=== PATIENT | male | born 1985 | race Caucasian/White ===

== ENCOUNTER 2016-07-09 20:12 | Emergency (ER) | payer SELFPAY ==
[~2016-07-09] VITALS: Ht 165.1 cm; Wt 62.5 kg
[~2016-07-09 20:12] MED LIST: ALBU18HF2 IH; AMOX875T2 PO; ERYT1OIN6 BOTH EYES
--- OUTSIDE RECORDS SUMMARY | 2016-07-09 20:15 | XMS REPORT | Continuity of Care Document ---
Author Author [facility] Organization [facility] Address Unknown Phone Unavailable Support Name Relationship Address Phone MARIANNA COLEMAN DO Caregiver [address] [place] [address] Unavailable DEANGELO HU Next Of Kin [address], [place] [id number] Insurance Providers Guarantor aDyo Tomlinson Address [address] [place] [address] Email DENIED 16 Payer Self Pay Subscriber's Name ErickDayo Relationship 18 Self Chief Complaint and Reason for Visit Chief Complaint Eye Problems Reason for Visit Conjunctivitis Problems Past Problems Medical Problem Onset Date Asthma exacerbation Unknown Conjunctivitis Unknown Mild asthma exacerbation Unknown Medications Current Home Medications Medication Dose Units Route Directions Days Qty Instructions Start Date Albuterol Sulfate (Ventolin Hfa 90 Mcg/Actuation) 18 Gm Hfa.aer.ad 2-4 Puff Inhalation Every 4 Hours for Shortness Of Air/Wheezing 1 Inhaler Amoxicillin 875 Mg Tablet 1 Tab Oral Every 12 Hours 10 Days 20 Tablet 07/03/16 Erythromycin (Ilotycin) 1 Gm Oint...g. 1 Applic Both Eyes 6 Times A Day Special 10 Days 3.5 Gram APPLY RIBBON OF OINTMENT TO LOWER LID OF AFFECTED EYE(S). 07/03/16 Social History Social History Problem Response Recorded Date/Time Onset Date Status Hx Substance Use No 07/03/2016 8:12am Not Applicable Not Applicable Hx Alcohol Use No 07/03/2016 8:12am Not Applicable Not Applicable Query Response Start Date Stop Date Smoking Status Former smoker Hospital Discharge Instructions No hospital discharge instructions. Plan of Care Discharge Date 07/03/16 8:36am Disposition 01 DISCHARGED HOME, SELF-CARE Condition at Discharge Improved Instructions/Education Provided Conjunctivitis (ED) Prescriptions See Medication Section Referrals DAYO VASQUEZ MD Order Date: 2 Days Address: [address] [place] [address] [address] [place] [phone] [facility] Order Date: 2 Days Care Plan and Goals Physician Care Plan Problem: Acute Conjunctivitis Goal: Follow up with primary care provider Instructions: Take medications and follow care plan as discussed/written Functional Status No functional status results. Allergies, Adverse Reactions, Alerts No known allergies. Immunizations Query Response on File Recorded Date/Time Tdap Vaccine Hx UNKNOWN 07/03/16 8:05am Vital Signs Acute Vital Signs Vital Response Date/Time Temperature (Fahrenheit) 98.3 deg F (96.8 - 99.1) 07/03/2016 8:36am Temperature (Calculated Celsius) 36.90597 degrees C (36.0 - 37.3) 07/03/2016 8:36am Pulse Rate (adult) 79 bpm (60 - 100) 07/03/2016 8:36am Respiratory Rate 16 breaths/min (10 - 20) 07/03/2016 8:36am O2 Sat by Pulse Oximetry 98 % (90 - 100) 07/03/2016 8:36am Blood Pressure 127/81 mm Hg 07/03/2016 8:36am Height (Feet) 5 feet 07/03/2016 8:05am Height (Inches) 5.00 inches 07/03/2016 8:05am Weight (Kilograms) 67.800 kg 07/03/2016 8:05am Body Mass Index (BMI) 24.0 07/03/2016 8:05am Results No known relevant diagnostic tests, laboratory data and/or discharge summary. Procedures No known history of procedures. Encounters Encounter Location Arrival/Admit Date Discharge/Depart Date Attending Provider Departed Emergency Room [facility] 07/03/16 7:55am 07/03/16 8: 36am MARIANNA COLEMAN DO Recent Diagnosis
[2016-07-09 21:24] VITALS: Ht 165.1 cm; Wt 62.5 kg
[2016-07-09] MEDS ORDERED: NORMAL SALINE 1,000 ML IV ONE (21:30)
[2016-07-09] MEDS ORDERED: ONDANSETRON 4mg/2ml INJECTION IV ONE (21:30)
--- NOTE | 2016-07-09 21:33 | ERPDOC ---
Departure Disposition Decision Date: Jul 09, 2016 Disposition Decision Time: 22:28 Disposition: 01 DISCHARGED HOME, SELF-CARE Impression Impression Impression: Primary Impression: Viral gastroenteritis Additional Impressions: Dehydration Vomiting Vomiting type: unspecified Vomiting Intractability: intractable Nausea presence: with nausea Qualified Codes: R11.2 - Nausea with vomiting, unspecified Severity: Severe Condition: Improved Seen By: Physician only Problems/Meds/Labs Reviewed?: Yes Medications reviewed and manag: Yes Follow up care ordered?: Yes Mental Status: Alert Scripts Ondansetron (Zofran Odt) 4 Mg Tab.rapdis 4 MG PO Q6HR, #10 TAB Oral disintegrating tablet Prov: TERRI GREEN MD 07/09/16 HPI - Abdominal Pain General Chief Complaint: Nausea,Vomiting,Diarrhea Stated Complaint: VOMITING,DIARRHEA Time Seen by Provider: 21:26 Source: patient History/Exam Limitations: no limitations HPI - Abdominal Pain Initial Comments Vomiting for the past 24 hours. Patient has been unable to hold fluids down for the past 12 hours. Times began yesterday around this time with vomiting and diarrhea, patient did have cramping pain just before vomiting or diarrhea. Diarrhea has now resolved, patient is still unable to take even fluids. No urine output since 8 AM, patient has been unable to drink, and continues to have dry heaves. Occurred At: home Onset: Rapid Duration: 12-24 hrs Quality: cramping Location: generalized abdomen Associated Symptoms: nausea/vomiting, DENIES: chest pain, diaphoresis, fatigue , fever/chills, headache, heartburn, rash, shortness of breath, swelling/mass in abdomen, syncope, weakness Hx of Similar Symptoms: No Allergies: Coded Allergies: No Known Allergies (Unverified , 07/09/16) Past History Past Medical History Respiratory: asthma Surgical History Denies Surgeries Social History Does patient use chewing tobac: No Second Hand Exposure: No Substance Use Type: does not use Alcohol Intake: none Current Occupational Status: employed Record Review Pertinent history updated: Yes Review of Systems Constitutional Constitutional: DENIES: appetite decrease, appetite increase, chills, dizziness , fever, weakness ENMT Ears: DENIES: pain Hearing: DENIES: hearing loss, tinnitus Balance: DENIES: vertigo Mouth/Throat: DENIES: change in swallowing, change in voice, hoarsness, painful swallowing, sore throat Cardiovascular Cardiac: DENIES: chest pain, dyspnea on exertion Rhythm/Rate: DENIES: irregular beat, palpitations, tachycardia Vascular: DENIES: pedal edema Pulmonary Respiratory: DENIES: cough, dyspnea, pleuritic chest pain GI Upper Abdomen: nausea, vomiting, DENIES: dysphagia, food intolerances, heartburn/indigestion, hematemesis, pain Lower Abdomen: diarrhea, DENIES: blood in stool, zafar-colored stools, constipation, melena, pain, painful BM General: DENIES: burning, dysuria, frequency, pain, urgency Musculoskeletal General: DENIES: cramps, joint pain, joint swelling, pain, weakness Integumentary Skin: DENIES: rash, sores Neurological General: DENIES: headache, numbness, tingling, vertigo, weakness Physical Exam General General Nourishment: well nourished, well developed, appears stated age Distress Description Patient appears dehydrated with dry mouth and lips General Body Habitus: well groomed Vitals and Pain First Documented Vital Signs Date Time Temp Pulse Resp B/P Pulse Ox O2 Delivery O2 Flow Rate FiO2 07/09/16 21:24 99.0 96 19 117/70 97 Room Air Weight: Kilograms: 62.500 Height (feet): 5 Height (inches): 5.00 Triage Pain Scale: RN VS reviewed by Provider: Yes Normal Exams: Head: Normocephalic w/o trauma Eyes: Pupils are PERRLA w/ EOMI, No scleral icterus, irritation, or foreign bodies noted ENMT: No facial trauma, nasal exudates, pharyngeal erythema, or exudates are noted Neck: Full range of motion, without adenopathy, JVD, bruits or thyromegaly Chest/Resp: Clear all walter, with good airflow, and symmetry bilaterally CV: Regular rate and rhythm, without murmur or gallop, Pulses 2+ all extremities, capillary refill, <2 seconds all ext., no pedal edema noted Abdomen: Bowel sounds positive, soft, non-tender, non-distended, no hepatosplenomegaly, masses or bruits noted Lymphatic: No lymphadenopathy, or lymphedema noted Musculoskeletal: No tenderness, or deformity noted, good range of motion, all extremities Integumentary: No rashes, hives, or bruising noted, hair and nails, without abnormality Neurologic: Patient is alert, and oriented, cranial nerves, motor/sensory/ cerebellar, exams w/o gross deficits, to observation Psychiatric: Patient exhibits, appropriate attention, emotion and affect ENMT (brief) ENMT Brief: FOUND: normal dentition, NOT FOUND: mucosa moist Progress Results/Orders Orders Procedure Category Date Status Time Iv Lock (Ed Only) EDM 07/09/16 Transmitted 21:26 Cbc W/Auto LAB 07/09/16 Complete Diff-Reflex Manual Cmp - Comprehensive LAB 07/09/16 Complete Metabolic Lipase LAB 07/09/16 Complete Ondansetron Inj PHA 07/09/16 Complete (Zofran) 21:30 Normal Saline (Normal PHA 07/09/16 Complete Saline Iv) 21:30 Lab Results Laboratory Tests Test 07/09/16 21:37 White Blood Count 11.8T/MM3 Red Blood Count 5.88M/MM3 Hemoglobin 17.0GM/DL Hematocrit 47.8% Mean Corpuscular Volume 81.3UM3 Mean Corpuscular Hemoglobin 28.9UUG Mean Corpuscular Hemoglobin Concent 35.6GM/DL RDW Standard Deviation 36.2FL Platelet Count 221T/MM3 Mean Platelet Volume 9.8UM3 Immature Granulocyte % (Auto) 0.3% Neutrophils (%) (Auto) 83.8% Lymphocytes (%) (Auto) 9.5% Monocytes (%) (Auto) 6.2% Eosinophils (%) (Auto) 0.0% Basophils (%) (Auto) 0.2% Absolute Immature Granulocyte (auto 0.03T/MM3 Absolute Neutrophils (auto) 9.9T/MM3 Absolute Lymphocytes (auto) 1.1T/MM3 Absolute Monocytes (auto) 0.7T/MM3 Absolute Eosinophils (auto) 0.0T/MM3 Absolute Basophils (auto) 0.0T/MM3 Turbidity < 20 Sodium Level 141MEQ/L Potassium Level 4.7MEQ/L Chloride Level 98MEQ/L Carbon Dioxide Level 28MEQ/L Anion Gap 15MEQ/L Blood Urea Nitrogen 26.0MG/DL Creatinine 1.4MG/DL Glomerular Filtration Rate Calc 60 BUN/Creatinine Ratio 19RATIO Glucose Level 118MG/DL Calculated Osmolality 277MOSM/KG Calcium Level 9.6MG/DL Total Bilirubin 1.30MG/DL Icterus Index < 2 Aspartate Amino Transf (AST/SGOT) 26U/L Alanine Aminotransferase (ALT/SGPT) 29U/L Alkaline Phosphatase 60U/L Total Protein 7.7G/DL Albumin 4.5G/DL Globulin 3.2G/DL Albumin/Globulin Ratio 1.4RATIO Lipase 25U/L Chemistry Specimen Hemolysis < 15 Medications Current ED Medications Ondansetron HCl 4 mg 4 mg O ONCE IV Last administered on 07/09/16 21:40; Start 07/09/16 at 21:30; Stop 07/09/16 at 21:31; Status DC Sodium Chloride (Normal Saline IV) 1,000 ml @ 0 mls/hr Q0M ONCE IV Last administered on 07/09/16 21:40; Start 07/09/16 at 21:30; Stop 07/09/16 at 21:31 ; Status DC Progress Progress Patient given Zofran 4 mg IV, 1 L normal saline IV fluid bolus - To significant improvement CBC - n CMP/L - n Patient sent home with Zofran pack and prescription for the same TERRI GREEN MD Jul 09, 2016 21:33
[2016-07-09 21:46] LABS: BASOPHILS % (AUTO) 0.2 % (0-2); HCT - HEMATOCRIT 47.8 % (41-53); IMMATURE GRANULOCYTE # (AUTO) 0.03 T/MM3 (0.00-0.03); IMMATURE GRANULOCYTE % (AUTO) 0.3 % (0.0-0.5); LYMPHOCYTES # (AUTO) 1.1 T/MM3 (1-4.8); LYMPHOCYTES % (AUTO) 9.5 % (23-45); MEAN CORPUSCULAR HGB 28.9 UUG (26-34); MEAN CORPUSCULAR HGB CONC(MCHC 35.6 GM/DL (31-37); MEAN CORPUSCULAR VOLUME 81.3 UM3 (80-100); MEAN PLATELET VOLUME 9.8 UM3 (9.4-12.4); MONOCYTES # (AUTO) 0.7 T/MM3 (0-0.8); MONOCYTES % (AUTO) 6.2 % (0-9.0); NEUTROPHILS #(AUTO)-ABSOLUTE 9.9 T/MM3 (1.8-7.7); NEUTROPHILS % (AUTO) 83.8 % (33-66); RED BLOOD COUNT 5.88 M/MM3 (4.50-5.90); WBC - WHITE BLOOD COUNT 11.8 T/MM3 (4.5-11.0)
[2016-07-09 21:51] LABS: ALBUMIN 4.5 G/DL (3.5-5.0); ALBUMIN/GLOBULIN RATIO 1.4 RATIO (1.1-2.2); ALKALINE PHOSPHATASE 60 U/L (38-126); ALT (SGPT) 29 U/L (21-72); ANION GAP 15 MEQ/L (5-15); AST (SGOT) 26 U/L (17-59); BUN/CREATININE RATIO 19 RATIO (6-26); CALCIUM 9.6 MG/DL (8.4-10.2); CHLORIDE 98 MEQ/L (98-107); CO2 - CARBON DIOXIDE 28 MEQ/L (22-30); CREATININE 1.4 MG/DL (0.8-1.5); GLOMERULAR FILTRATION RATE 60; GLUCOSE 118 MG/DL (75-110); LIPASE 25 U/L (23-300); POTASSIUM 4.7 MEQ/L (3.6-5); SODIUM 141 MEQ/L (134-144); TOTAL PROTEIN 7.7 G/DL (6.3-8.2)
[2016-07-09] MEDS ORDERED: ONDA4TAB7 PO (22:29)
[2016-07-09] MEDS ORDERED: ONDANSETRON ODT 4mg #3 (PrePack) SENT HOME ONE (22:30)
[2016-07-09 22:47] VITALS: BP 128/72; PULSE 96; RESP 19; TEMP 99; O2SAT 97
== END 2016-07-09 22:47 | disposition home or self-care (01) ==
LOC: ED 20:12
DX: A08.4 Viral intestinal infection, unspecified (principal); E86.0 Dehydration
CPT/HCPCS: 80053; 83690; 85025